=== PATIENT | male | born 1945 | race Caucasian/White ===

== ENCOUNTER 2016-11-21 15:33 | Emergency (ER) | payer OTHER, MEDICAID ==
[~2016-11-21] VITALS: Ht 170.2 cm; Wt 64.9 kg
[2016-11-21 16:47] VITALS: BP 126/95
== END 2016-11-21 16:47 | disposition home or self-care (01) ==
LOC: ED 15:33
DX: M17.0 Bilateral primary osteoarthritis of knee (principal); Z79.899 Other long term (current) drug therapy
CPT/HCPCS: J1885

== ENCOUNTER 2017-06-22 15:32 | Emergency (ER) | payer OTHER, MEDICAID ==
[2017-06-22 16:33] VITALS: BP 146/108
== END 2017-06-22 18:50 | disposition home or self-care (01) ==
LOC: ED 15:32
DX: M19.011 Primary osteoarthritis, right shoulder (principal)
CPT/HCPCS: J1885

== ENCOUNTER 2018-02-10 14:39 | Emergency (ER) | payer OTHER, MEDICAID ==
[~2018-02-10] VITALS: Ht 162.6 cm; Wt 62.6 kg
[2018-02-10 14:43] VITALS: BP 126/96; Ht 162.6 cm; Wt 62.6 kg
== END 2018-02-10 16:05 | disposition home or self-care (01) ==
LOC: ED 14:39
DX: S16.1XXA Strain of muscle, fascia and tendon at neck level, initial encounter (principal); M06.9 Rheumatoid arthritis, unspecified; X58.XXXA Exposure to other specified factors, initial encounter; Y93.89 Activity, other specified; Y92.89 Other specified places as the place of occurrence of the external cause; Y99.8 Other external cause status
CPT/HCPCS: J1100

== ENCOUNTER 2018-07-15 13:10 | Emergency (ER) | payer OTHER, MEDICAID ==
[~2018-07-15] VITALS: Ht 167.6 cm; Wt 63.5 kg
[2018-07-15 13:17] VITALS: BP 149/97; Ht 167.6 cm; Wt 63.5 kg
== END 2018-07-15 14:23 | disposition home or self-care (01) ==
LOC: ED 13:10
DX: M25.542 Pain in joints of left hand (principal); M25.541 Pain in joints of right hand; M19.042 Primary osteoarthritis, left hand; M19.041 Primary osteoarthritis, right hand

== ENCOUNTER 2020-01-08 11:34 | Emergency (ER) | payer OTHER, MEDICAID ==
[~2020-01-08] VITALS: Ht 170.2 cm; Wt 64.0 kg
[2020-01-08 11:46] VITALS: Ht 170.2 cm; Wt 64.0 kg
[2020-01-08 12:43] VITALS: BP 163/89
== END 2020-01-08 12:48 | disposition home or self-care (01) ==
LOC: ED 11:34
DX: M06.9 Rheumatoid arthritis, unspecified (principal)
CPT/HCPCS: J1885